=== PATIENT | female | born 1950 | race Caucasian/White ===

== ENCOUNTER 2016-10-21 08:31 | Inpatient (IN) | payer MEDICARE, OTHER ==
[2016-10-21 09:04] LABS: BASOPHIL 0.1 % (0-2); EOSINOPHIL 0.6 % (0-7); HCT 33.5 % (37.0-47.0); HGB 10.7 g/dl (12.5-16.0); LYMPHOCYTE 9.7 % (15-48); MCH 30.7 pg (25.0-31.0); MCHC 31.9 g/dL (32.0-36.0); MONOCYTE 6.1 % (0-12); MPV 9.8 fL (6.0-9.5); NEUTROPHIL 83.5 % (41-80); PLT 295 K/uL (150-400); RBC 3.49 M/uL (4.20-5.40); RDW 17.2 % (11.5-14.0)
[2016-10-21 09:05] LABS: INR 4.44 (0.9-1.2); PROTHROMBIN TIME 41.4 SECONDS (11.7-14.0); WBC 19.2 K/uL (4.0-10.5)
[2016-10-21 09:11] LABS: ALBUMIN 4.2 g/dL (3.4-4.8); BILIRUBIN - TOTAL 0.5 mg/dL (0.1-1.0); CREATININE 1.7 mg/dL (0.5-1.0); GLOBULIN (CALCULATION) 3.2 g/dL (2.2-4.2); POTASSIUM 4.4 mmol/L (3.5-5.1); TOTAL PROTEIN 7.4 g/dL (6.4-8.3)
[2016-10-21 09:12] LABS: TROPONIN T < 0.010 ng/mL
[2016-10-21 09:30] LABS: LACTIC ACID 2.3 mmol/L (0.5-2.2); PRO-BNP 4902 pg/mL (0-125)
[2016-10-22 03:57] LABS: BASOPHIL 0 % (0-2); EOSINOPHIL 0 % (0-7); HCT 30.8 % (37.0-47.0); LYMPHOCYTE 3.8 % (15-48); MCH 30.9 pg (25.0-31.0); MCHC 32.5 g/dL (32.0-36.0); MCV 95.1 fL (78.0-100.0); MPV 9.8 fL (6.0-9.5); NEUTROPHIL 94.2 % (41-80); PLT 239 K/uL (150-400); RBC 3.24 M/uL (4.20-5.40); RDW 17.1 % (11.5-14.0); WBC 14.7 K/uL (4.0-10.5)
[2016-10-22 04:08] LABS: INR 4.73 (0.9-1.2); PROTHROMBIN TIME 43.5 SECONDS (11.7-14.0)
[2016-10-22 04:38] LABS: CREATININE 1.9 mg/dL (0.5-1.0)
--- NOTE | 2016-10-22 08:18 | NUR ---
PARRA CATH REMOVED PER MD ORDER, OR TOLERATED WELL
--- NOTE | 2016-10-22 08:59 | NUR ---
PT AMBULATED AROUND THE HALLWAYS IN TCU/ICU O2 SAT ON ROOM AIR MAINTAINED AT 94%, TOLERATED WELL, NO DISTRESS, ALERT AND ORIENETD, PT STATED THAT SHE FEELS READY TO GO HOME. aMBULATED AROUND HALLWAYS x 2
[2016-10-23] MEDS ORDERED: CEFTIN250 MG PO (08:28)
[2016-10-23] MEDS ORDERED: AZITHROMYCIN250 MG PO (08:29)
[2016-10-23] MEDS ORDERED: LACTINEX1 EACH PO (08:29)
[2016-10-23] MEDS ORDERED: PREDNISONE 10MG10 MG PO (08:30)
[2016-10-23] MEDS ORDERED: ASPIRIN CHEWABL81 MG PO (08:30)
[2016-10-23] MEDS ORDERED: NORVASC5 MG PO (08:30)
[2016-10-23] MEDS ORDERED: ATORVASTATIN CA40 MG PO (08:31)
[2016-10-23] MEDS ORDERED: SYNTHROID150 MCG PO (08:31)
[2016-10-23] MEDS ORDERED: PHENERGAN25 M1 PO (08:32)
[2016-10-23] MEDS ORDERED: HOLD WARFARIN (08:32)
[2016-10-23] MEDS ORDERED: VENTOLIN (2.5 MG/3 M NEB (08:33)
[2016-10-23] MEDS ORDERED: SYMBICORT 16010.2 GM INH (08:33)
[2017-03-05] MEDS ORDERED: REQUIP1 MG PO (08:31)
[2017-03-05] MEDS ORDERED: KLONOPIN0.5 MG PO (08:32)
[2017-03-05] MEDS ORDERED: COUMADIN2 MG PO (10:11)
[2017-03-05] MEDS ORDERED: VISTARIL25 MG PO (10:13)
[2017-03-05] MEDS ORDERED: BEVESPI AEROS10.7 GM INH (10:13)
[2017-04-06] MEDS ORDERED: LOPRESSOR100 MG PO (08:31)
[2017-04-06] MEDS ORDERED: ZANTAC150 MG PO (08:31)
[2017-04-06] MEDS ORDERED: VENLAFAXINE HC150 MG PO (08:32)
[2017-04-06] MEDS ORDERED: AMIODARONE HCL200 MG PO (10:12)
[2017-04-06] MEDS ORDERED: ATIVAN0.5 MG PO (12:35)
[2017-04-06] MEDS ORDERED: BUMETANIDE2 MG PO (12:36)
[2017-04-06] MEDS ORDERED: CYMBALTA 30MG C30 MG PO (12:36)
[2017-04-06] MEDS ORDERED: LASIX40 MG PO (12:36)
[2017-04-27] MEDS ORDERED: LASIX40 MG PO (16:23)
[2017-05-01] MEDS ORDERED: COUMADIN2 MG PO (10:08)
[2017-05-01] MEDS ORDERED: LIPITOR40 MG PO (16:24)
[2017-05-01] MEDS ORDERED: LEVAQUIN750 MG PO (16:25)
[2017-05-01] MEDS ORDERED: PREDNISONE 10MG10 MG PO (16:25)
== END 2016-10-22 13:10 | disposition home or self-care (01) | DRG 871 ==
LOC: FER 08:31 → FTCU 11:40
PROVIDERS: Emergency Medicine; Internal Medicine; ADMIT Internal Medicine
DX: A41.9 Sepsis, unspecified organism (principal); J18.9 Pneumonia, unspecified organism; J96.01 Acute respiratory failure with hypoxia; J44.0 Chronic obstructive pulmonary disease with (acute) lower respiratory infection; J44.1 Chronic obstructive pulmonary disease with (acute) exacerbation; I48.0 Paroxysmal atrial fibrillation; D64.9 Anemia, unspecified; I12.9 Hypertensive chronic kidney disease with stage 1 through stage 4 chronic kidney disease, or unspecified chronic kidney disease; N18.9 Chronic kidney disease, unspecified; E03.9 Hypothyroidism, unspecified; G47.33 Obstructive sleep apnea (adult) (pediatric); I25.10 Atherosclerotic heart disease of native coronary artery without angina pectoris; E78.5 Hyperlipidemia, unspecified; F17.210 Nicotine dependence, cigarettes, uncomplicated; R79.1 Abnormal coagulation profile; Z95.1 Presence of aortocoronary bypass graft; Z82.49 Family history of ischemic heart disease and other diseases of the circulatory system; Z80.6 Family history of leukemia; Z79.82 Long term (current) use of aspirin; Z79.01 Long term (current) use of anticoagulants; Z79.899 Other long term (current) drug therapy
CPT/HCPCS: 36415; 36600; 71010; 80048; 80053; 82803; 83605; 83880; 84484; 85025; 85610; 86850; 86900; 86901; 87040; 93005; 94640; J0456; J1940; J2060; J2930

== ENCOUNTER 2016-11-16 06:11 | Emergency (ER) | payer MEDICARE, OTHER ==
[~2016-11-16 06:11] MED LIST: ASPIRIN CHEWABL81 MG PO; ATORVASTATIN CA40 MG PO; AZITHROMYCIN250 MG PO; CEFTIN250 MG PO; HOLD WARFARIN; LACTINEX1 EACH PO; NORVASC5 MG PO; PHENERGAN25 M1 PO; PREDNISONE 10MG10 MG PO; SYMBICORT 16010.2 GM INH; SYNTHROID150 MCG PO; VENTOLIN (2.5 MG/3 M NEB
[2017-03-05] MEDS ORDERED: REQUIP1 MG PO (08:31)
[2017-03-05] MEDS ORDERED: KLONOPIN0.5 MG PO (08:32)
[2017-03-05] MEDS ORDERED: COUMADIN2 MG PO (10:11)
[2017-03-05] MEDS ORDERED: BEVESPI AEROS10.7 GM INH (10:13)
[2017-03-05] MEDS ORDERED: VISTARIL25 MG PO (10:13)
[2017-04-06] MEDS ORDERED: LOPRESSOR100 MG PO (08:31)
[2017-04-06] MEDS ORDERED: ZANTAC150 MG PO (08:31)
[2017-04-06] MEDS ORDERED: VENLAFAXINE HC150 MG PO (08:32)
[2017-04-06] MEDS ORDERED: AMIODARONE HCL200 MG PO (10:12)
[2017-04-06] MEDS ORDERED: ATIVAN0.5 MG PO (12:35)
[2017-04-06] MEDS ORDERED: CYMBALTA 30MG C30 MG PO (12:36)
[2017-04-06] MEDS ORDERED: LASIX40 MG PO (12:36)
[2017-04-06] MEDS ORDERED: BUMETANIDE2 MG PO (12:36)
[2017-04-27] MEDS ORDERED: LASIX40 MG PO (16:23)
[2017-05-01] MEDS ORDERED: COUMADIN2 MG PO (10:08)
[2017-05-01] MEDS ORDERED: LIPITOR40 MG PO (16:24)
[2017-05-01] MEDS ORDERED: LEVAQUIN750 MG PO (16:25)
[2017-05-01] MEDS ORDERED: PREDNISONE 10MG10 MG PO (16:25)
== END 2016-11-16 13:44 | disposition other institution (70) ==
LOC: FER 06:11
DX: A41.9 Sepsis, unspecified organism (principal); R65.20 Severe sepsis without septic shock; J96.00 Acute respiratory failure, unspecified whether with hypoxia or hypercapnia; J44.9 Chronic obstructive pulmonary disease, unspecified; I25.10 Atherosclerotic heart disease of native coronary artery without angina pectoris; Z95.1 Presence of aortocoronary bypass graft; Z87.891 Personal history of nicotine dependence; Z79.01 Long term (current) use of anticoagulants; Z79.899 Other long term (current) drug therapy; Z98.84 Bariatric surgery status
CPT/HCPCS: 36415; 36600; 71010; 80053; 81001; 82803; 83605; 83880; 84484; 85025; 85379; 85610; 85730; 87040; 87088; 87804; 87899; 93005; 94640; 94660; 94760; 96372; J2543

== ENCOUNTER 2017-01-06 17:45 | Emergency (ER) | payer MEDICARE, OTHER ==
[2017-01-06 18:23] LABS: BASOPHIL 0.2 % (0-2); EOSINOPHIL 0 % (0-7); HCT 31.2 % (37.0-47.0); HGB 10.1 g/dl (12.5-16.0); LYMPHOCYTE 5.1 % (15-48); MCH 28.1 pg (25.0-31.0); MCHC 32.4 g/dL (32.0-36.0); MCV 86.9 fL (78.0-100.0); MONOCYTE 6.8 % (0-12); MPV 9.3 fL (6.0-9.5); NEUTROPHIL 87.9 % (41-80); PLT 277 K/uL (150-400); RBC 3.59 M/uL (4.20-5.40); RDW 15.8 % (11.5-14.0)
[2017-01-06 18:24] LABS: WBC 13.1 K/uL (4.0-10.5)
[2017-01-06 18:28] LABS: INR 3.46 (0.9-1.2); PTT 37.7 SECONDS (23.2-31.4)
[2017-01-06 18:36] LABS: ALBUMIN 4.3 g/dL (3.4-4.8); BILIRUBIN - TOTAL 0.2 mg/dL (0.1-1.0); CREATININE 1.9 mg/dL (0.5-1.0); GLOBULIN (CALCULATION) 3.1 g/dL (2.2-4.2); TOTAL PROTEIN 7.4 g/dL (6.4-8.3)
[2017-01-06 18:37] LABS: TROPONIN T < 0.010 ng/mL
[2017-01-06 18:38] LABS: PRO-BNP 4152 pg/mL (0-125)
[2017-03-05] MEDS ORDERED: REQUIP1 MG PO (08:31)
[2017-03-05] MEDS ORDERED: KLONOPIN0.5 MG PO (08:32)
[2017-03-05] MEDS ORDERED: COUMADIN2 MG PO (10:11)
[2017-03-05] MEDS ORDERED: VISTARIL25 MG PO (10:13)
[2017-03-05] MEDS ORDERED: BEVESPI AEROS10.7 GM INH (10:13)
[2017-04-06] MEDS ORDERED: ZANTAC150 MG PO (08:31)
[2017-04-06] MEDS ORDERED: LOPRESSOR100 MG PO (08:31)
[2017-04-06] MEDS ORDERED: VENLAFAXINE HC150 MG PO (08:32)
[2017-04-06] MEDS ORDERED: AMIODARONE HCL200 MG PO (10:12)
[2017-04-06] MEDS ORDERED: ATIVAN0.5 MG PO (12:35)
[2017-04-06] MEDS ORDERED: CYMBALTA 30MG C30 MG PO (12:36)
[2017-04-06] MEDS ORDERED: LASIX40 MG PO (12:36)
[2017-04-06] MEDS ORDERED: BUMETANIDE2 MG PO (12:36)
[2017-04-27] MEDS ORDERED: LASIX40 MG PO (16:23)
[2017-05-01] MEDS ORDERED: COUMADIN2 MG PO (10:08)
[2017-05-01] MEDS ORDERED: LIPITOR40 MG PO (16:24)
[2017-05-01] MEDS ORDERED: LEVAQUIN750 MG PO (16:25)
[2017-05-01] MEDS ORDERED: PREDNISONE 10MG10 MG PO (16:25)
== END 2017-01-06 19:56 | disposition home or self-care (01) ==
LOC: FER 17:45
PROVIDERS: Emergency Medicine
DX: J44.1 Chronic obstructive pulmonary disease with (acute) exacerbation (principal); I48.91 Unspecified atrial fibrillation; R82.90 Unspecified abnormal findings in urine; I10 Essential (primary) hypertension; E78.5 Hyperlipidemia, unspecified; D64.9 Anemia, unspecified; G47.33 Obstructive sleep apnea (adult) (pediatric); F17.210 Nicotine dependence, cigarettes, uncomplicated; Z79.01 Long term (current) use of anticoagulants; Z98.84 Bariatric surgery status; Z95.1 Presence of aortocoronary bypass graft
CPT/HCPCS: 36415; 36600; 71010; 80053; 82803; 83605; 83880; 84484; 85025; 85610; 85730; 87040; 93005; 94640; J1940; J2930

== ENCOUNTER 2017-01-12 18:01 | Inpatient (IN) | payer MEDICARE, OTHER ==
[~2017-01-12] VITALS: Ht 165.1 cm; Wt 92.1 kg
[2017-01-12 18:42] LABS: INR 4.32 (0.9-1.2); PROTHROMBIN TIME 40.5 SECONDS (11.7-14.0)
[2017-01-12 18:44] LABS: TROPONIN T < 0.010 ng/mL
[2017-01-12 18:45] LABS: PRO-BNP 3415 pg/mL (0-125)
[2017-01-12 18:46] LABS: ALBUMIN 4.1 g/dL (3.4-4.8); BILIRUBIN - TOTAL 0.5 mg/dL (0.1-1.0); CREATININE 1.7 mg/dL (0.5-1.0); GLOBULIN (CALCULATION) 3.3 g/dL (2.2-4.2); POTASSIUM 4.4 mmol/L (3.5-5.1); TOTAL PROTEIN 7.4 g/dL (6.4-8.3)
[2017-01-12 18:54] LABS: BASOPHIL 0.1 % (0-2); EOSINOPHIL 2.3 % (0-7); HCT 35.6 % (37.0-47.0); HGB 11.6 g/dl (12.5-16.0); LYMPHOCYTE 13.4 % (15-48); MCH 27.8 pg (25.0-31.0); MCHC 32.6 g/dL (32.0-36.0); MCV 85.4 fL (78.0-100.0); MONOCYTE 10.9 % (0-12); NEUTROPHIL 73.3 % (41-80); PLT 414 K/uL (150-400); RBC 4.17 M/uL (4.20-5.40); RDW 16.2 % (11.5-14.0)
[2017-01-12 18:56] LABS: WBC 16.7 K/uL (4.0-10.5)
[2017-01-12 21:14] LABS: LACTIC ACID 2.3 mmol/L (0.5-2.2)
[2017-01-12 21:16] LABS: MAGNESIUM 1.89 mg/dL (1.40-2.10); PHOSPHORUS 2.5 mg/dL (2.7-4.5)
[2017-01-12 21:16] LABS: BILIRUBIN NEGATIVE (NEGATIVE); BLOOD NEGATIVE Ery/uL (NEGATIVE); CLARITY CLEAR (CLEAR); COLOR YELLOW (YELLOW); GLUCOSE (U) NORMAL (NORMAL); KETONE (U) NEGATIVE (NEGATIVE); LEUKOCYTES NEGATIVE Leu/uL (NEGATIVE); NITRITE NEGATIVE (NEGATIVE); PROTEIN TRACE (LOW) mg/dL (NEGATIVE); SPECIFIC GRAVITY 1.015 (1.001-1.030); UROBILINOGEN 0.2 mg/dL (0.2-1.0); pH 5.5 (5.0-9.0)
[2017-01-12 21:26] LABS: FT4 (FREE T4) 2.49 ng/dL (0.93-1.70); TSH (THYROID STIM HORMONE) 0.067 uIU/mL (0.270-4.200)
[2017-01-13 00:55] LABS: CKMB 2.29 ng/mL (0.97-4.94); TROPONIN T < 0.010 ng/mL
[2017-01-13 07:01] LABS: BASOPHIL 0.1 % (0-2); EOSINOPHIL 0 % (0-7); HCT 30.4 % (37.0-47.0); HGB 9.8 g/dl (12.5-16.0); LYMPHOCYTE 6.2 % (15-48); MCH 27.5 pg (25.0-31.0); MCHC 32.2 g/dL (32.0-36.0); MCV 85.4 fL (78.0-100.0); MPV 9.2 fL (6.0-9.5); PLT 307 K/uL (150-400); RBC 3.56 M/uL (4.20-5.40); RDW 15.7 % (11.5-14.0); WBC 12.1 K/uL (4.0-10.5)
[2017-01-13 07:16] LABS: CKMB 2.09 ng/mL (0.97-4.94); NEUTROPHIL 91.7 % (41-80); TROPONIN T < 0.010 ng/mL
[2017-01-13 07:24] LABS: INR 3.5 (0.9-1.2); PROTHROMBIN TIME 34.3 SECONDS (11.7-14.0)
[2017-01-13 07:40] LABS: POTASSIUM 5.5 mmol/L (3.5-5.1)
[2017-01-14 04:41] LABS: INR 2.64 (0.9-1.2); PROTHROMBIN TIME 27.5 SECONDS (11.7-14.0)
[2017-01-14 04:50] LABS: POTASSIUM 4.7 mmol/L (3.5-5.1)
[2017-01-15 04:42] LABS: INR 2.21 (0.9-1.2); PROTHROMBIN TIME 23.9 SECONDS (11.7-14.0)
[2017-01-15 09:22] LABS: BASOPHIL 0.1 % (0-2); EOSINOPHIL 0 % (0-7); HCT 30.1 % (37.0-47.0); HGB 9.5 g/dl (12.5-16.0); LYMPHOCYTE 2.4 % (15-48); MCH 27.6 pg (25.0-31.0); MCHC 31.6 g/dL (32.0-36.0); MCV 87.5 fL (78.0-100.0); MONOCYTE 5.5 % (0-12); MPV 9.9 fL (6.0-9.5); PLT 309 K/uL (150-400); RBC 3.44 M/uL (4.20-5.40); RDW 16.4 % (11.5-14.0)
[2017-01-15 09:23] LABS: WBC 27.8 K/uL (4.0-10.5)
[2017-01-15 09:35] LABS: CREATININE 2.3 mg/dL (0.5-1.0); POTASSIUM 4.8 mmol/L (3.5-5.1)
[2017-01-16 05:44] LABS: INR 2.59 (0.9-1.2); PROTHROMBIN TIME 27.1 SECONDS (11.7-14.0)
[2017-01-16 16:31] LABS: IRON 24 ug/dL (44-196); IRON % SATURATION 8 %SAT (20-50); TIBC (TOTAL IRON + UIBC) 319 U/L (228-428); UIBC 295 ug/dL (112-346)
[2017-01-17 04:36] LABS: BASOPHIL 0 % (0-2); EOSINOPHIL 0 % (0-7); HCT 30.7 % (37.0-47.0); HGB 9.9 g/dl (12.5-16.0); LYMPHOCYTE 3.5 % (15-48); MCH 27.4 pg (25.0-31.0); MCHC 32.2 g/dL (32.0-36.0); MONOCYTE 7.2 % (0-12); MPV 9.7 fL (6.0-9.5); NEUTROPHIL 89.3 % (41-80); PLT 274 K/uL (150-400); RBC 3.61 M/uL (4.20-5.40); RDW 16.1 % (11.5-14.0)
[2017-01-17 04:40] LABS: INR 2.56 (0.9-1.2); PROTHROMBIN TIME 26.8 SECONDS (11.7-14.0)
[2017-01-17 04:44] LABS: WBC 25.7 K/uL (4.0-10.5)
[2017-01-17 04:57] LABS: CREATININE 1.8 mg/dL (0.5-1.0); MAGNESIUM 2.17 mg/dL (1.40-2.10); POTASSIUM 4.8 mmol/L (3.5-5.1)
[2017-01-17] MEDS ORDERED: CEFDINIR300 MG PO (10:12)
[2017-01-17] MEDS ORDERED: MUCINEX 600MG600 MG PO (10:13)
--- NOTE | 2017-01-17 11:44 | NUR ---
PT TAKEN FROM TCU VIA WHEELCHAIR. VITALS STABLE. NO DISTRESS NOTED, IVS REMOVED
[2017-03-05] MEDS ORDERED: REQUIP1 MG PO (08:31)
[2017-03-05] MEDS ORDERED: KLONOPIN0.5 MG PO (08:32)
[2017-03-05] MEDS ORDERED: COUMADIN2 MG PO (10:11)
[2017-03-05] MEDS ORDERED: VISTARIL25 MG PO (10:13)
[2017-03-05] MEDS ORDERED: BEVESPI AEROS10.7 GM INH (10:13)
[2017-04-06] MEDS ORDERED: ZANTAC150 MG PO (08:31)
[2017-04-06] MEDS ORDERED: LOPRESSOR100 MG PO (08:31)
[2017-04-06] MEDS ORDERED: VENLAFAXINE HC150 MG PO (08:32)
[2017-04-06] MEDS ORDERED: AMIODARONE HCL200 MG PO (10:12)
[2017-04-06] MEDS ORDERED: ATIVAN0.5 MG PO (12:35)
[2017-04-06] MEDS ORDERED: CYMBALTA 30MG C30 MG PO (12:36)
[2017-04-06] MEDS ORDERED: BUMETANIDE2 MG PO (12:36)
[2017-04-06] MEDS ORDERED: LASIX40 MG PO (12:36)
[2017-04-27] MEDS ORDERED: LASIX40 MG PO (16:23)
[2017-05-01] MEDS ORDERED: COUMADIN2 MG PO (10:08)
[2017-05-01] MEDS ORDERED: LIPITOR40 MG PO (16:24)
[2017-05-01] MEDS ORDERED: PREDNISONE 10MG10 MG PO (16:25)
[2017-05-01] MEDS ORDERED: LEVAQUIN750 MG PO (16:25)
== END 2017-01-17 11:30 | disposition home or self-care (01) | DRG 191 ==
LOC: FER 18:01 → FTCU 21:55
PROVIDERS: Emergency Medicine; Internal Medicine; Internal Medicine Cardiovascular Disease; ADMIT Internal Medicine
DX: J44.1 Chronic obstructive pulmonary disease with (acute) exacerbation (principal); I48.92 Unspecified atrial flutter; N17.9 Acute kidney failure, unspecified; I48.0 Paroxysmal atrial fibrillation; N18.4 Chronic kidney disease, stage 4 (severe); J20.9 Acute bronchitis, unspecified; J44.0 Chronic obstructive pulmonary disease with (acute) lower respiratory infection; T45.515A Adverse effect of anticoagulants, initial encounter; I25.10 Atherosclerotic heart disease of native coronary artery without angina pectoris; F41.1 Generalized anxiety disorder; G47.33 Obstructive sleep apnea (adult) (pediatric); I12.9 Hypertensive chronic kidney disease with stage 1 through stage 4 chronic kidney disease, or unspecified chronic kidney disease; D50.9 Iron deficiency anemia, unspecified; Z79.82 Long term (current) use of aspirin; Z98.84 Bariatric surgery status; Z87.891 Personal history of nicotine dependence; Z79.01 Long term (current) use of anticoagulants; E78.5 Hyperlipidemia, unspecified; Z95.1 Presence of aortocoronary bypass graft; I25.2 Old myocardial infarction; F32.9 Major depressive disorder, single episode, unspecified; R73.9 Hyperglycemia, unspecified
CPT/HCPCS: 36415; 71010; 71020; 80048; 80053; 81001; 82550; 82553; 82607; 83036; 83540; 83550; 83605; 83735; 83880; 84100; 84132; 84439; 84443; 84484; 85025; 85610; 85730; 87040; 87070; 87077; 87088; 87186; 87205; 93005; 94640; 94664; 94667; 94668; 96374; 97163; 97165; 97530; G0378; J0282; J2270; J2405; J2930

== ENCOUNTER 2017-01-26 03:12 | Day surgery (SDCO) | payer MEDICARE, OTHER ==
[~2017-01-26] VITALS: Ht 165.1 cm; Wt 90.4 kg
[~2017-01-26 03:12] MED LIST changes: +CEFDINIR300 MG PO; +MUCINEX 600MG600 MG PO
[2017-01-26 03:46] LABS: BASOPHIL 0.3 % (0-2); EOSINOPHIL 1.8 % (0-7); HCT 30.2 % (37.0-47.0); HGB 9.6 g/dl (12.5-16.0); LYMPHOCYTE 8.8 % (15-48); MCH 27.4 pg (25.0-31.0); MCHC 31.8 g/dL (32.0-36.0); MONOCYTE 5.2 % (0-12); MPV 9.2 fL (6.0-9.5); NEUTROPHIL 83.9 % (41-80); PLT 350 K/uL (150-400); RBC 3.51 M/uL (4.20-5.40); RDW 16.9 % (11.5-14.0)
[2017-01-26 03:47] LABS: WBC 13.8 K/uL (4.0-10.5)
[2017-01-26 03:52] LABS: INR 1.59 (0.9-1.2); PROTHROMBIN TIME 18.4 SECONDS (11.7-14.0); PTT 36.7 SECONDS (23.2-31.4)
[2017-01-26 03:53] LABS: D-DIMER 2.53 ug/mLFEU (0.00-0.41)
[2017-01-26 04:16] LABS: CKMB 1.95 ng/mL (0.97-4.94); TROPONIN T < 0.010 ng/mL
[2017-01-26 04:17] LABS: ALBUMIN 3.2 g/dL (3.4-4.8); BILIRUBIN - TOTAL 0.2 mg/dL (0.1-1.0); CREATININE 1.8 mg/dL (0.5-1.0); LACTIC ACID 0.7 mmol/L (0.5-2.2); POTASSIUM 4.9 mmol/L (3.5-5.1); PRO-BNP 6393 pg/mL (0-125); TOTAL PROTEIN 7.2 g/dL (6.4-8.3)
[2017-01-26 04:35] LABS: BILIRUBIN NEGATIVE (NEGATIVE); BLOOD TRACE-LYSED Ery/uL (NEGATIVE); CLARITY CLEAR (CLEAR); GLUCOSE (U) NORMAL (NORMAL); KETONE (U) NEGATIVE (NEGATIVE); LEUKOCYTES NEGATIVE Leu/uL (NEGATIVE); NITRITE NEGATIVE (NEGATIVE); PROTEIN NEGATIVE (NEGATIVE); UROBILINOGEN 0.2 mg/dL (0.2-1.0); pH 5.5 (5.0-9.0)
[2017-01-26 04:37] LABS: COLOR STRAW (YELLOW)
[2017-01-26 04:51] LABS: SQUAMOUS EPITHELIAL CELLS RARE; URINARY RBC RARE
[2017-01-27 04:45] LABS: BASOPHIL 0 % (0-2); EOSINOPHIL 0 % (0-7); HCT 25.4 % (37.0-47.0); HGB 8.2 g/dl (12.5-16.0); LYMPHOCYTE 4.7 % (15-48); MCH 27.4 pg (25.0-31.0); MCHC 32.3 g/dL (32.0-36.0); MCV 84.9 fL (78.0-100.0); MONOCYTE 4.4 % (0-12); MPV 9.4 fL (6.0-9.5); NEUTROPHIL 90.9 % (41-80); PLT 333 K/uL (150-400); RBC 2.99 M/uL (4.20-5.40); RDW 16.3 % (11.5-14.0); WBC 17.7 K/uL (4.0-10.5)
[2017-01-27 04:46] LABS: INR 2.51 (0.9-1.2); PROTHROMBIN TIME 26.4 SECONDS (11.7-14.0)
[2017-01-27 04:56] LABS: CREATININE 1.9 mg/dL (0.5-1.0); MAGNESIUM 1.96 mg/dL (1.40-2.10); POTASSIUM 4.7 mmol/L (3.5-5.1)
[2017-01-27] MEDS ORDERED: REMERON15 MG PO (10:56)
[2017-01-27] MEDS ORDERED: CEFEPIME 22 GM/100 M IV (10:57)
--- NOTE | 2017-01-27 16:42 | NUR ---
1515 PT IN ICU NEEDING PICC LINE INSERTED FOR [facility]. PROCEDURE EXPLAINED TO PT ALONG WITH RISKS AND BENEFITS. CONSENT SIGNED. BASILIC VEIN VISUALIZED USING THE SITE [employer] 6 ULTRASOUND MACHINE.LEFT UPPER ARM SKIN AREA CLEANSED AND DRAPED IN STERILE FASHION. AREA THEN NUMBED WITH % LIDOCAINE. 21 GA NEEDLE INSERTED IN DODIE X1 STICK. GUIDED EASILY. #4 FR SINGLE LUMEN CATHETER TRIMMED AT 44 CM, BICEP 32 CM, INSERTION 0 CM. GOOD BLOOD RETURN NOTED. PICC DRESSING APPLIED, STAT CHEST XRAY OBTAINED. RADIOLOGIST CONFIRMED PLACEMENT IN THE PROXIMAL SVC. PATIENT TOLERATED IT WELL. REPORT GIVEN TO ADAM RIVERA R.N..
[2017-03-05] MEDS ORDERED: REQUIP1 MG PO (08:31)
[2017-03-05] MEDS ORDERED: KLONOPIN0.5 MG PO (08:32)
[2017-03-05] MEDS ORDERED: COUMADIN2 MG PO (10:11)
[2017-03-05] MEDS ORDERED: BEVESPI AEROS10.7 GM INH (10:13)
[2017-03-05] MEDS ORDERED: VISTARIL25 MG PO (10:13)
[2017-04-06] MEDS ORDERED: LOPRESSOR100 MG PO (08:31)
[2017-04-06] MEDS ORDERED: ZANTAC150 MG PO (08:31)
[2017-04-06] MEDS ORDERED: VENLAFAXINE HC150 MG PO (08:32)
[2017-04-06] MEDS ORDERED: AMIODARONE HCL200 MG PO (10:12)
[2017-04-06] MEDS ORDERED: ATIVAN0.5 MG PO (12:35)
[2017-04-06] MEDS ORDERED: CYMBALTA 30MG C30 MG PO (12:36)
[2017-04-06] MEDS ORDERED: BUMETANIDE2 MG PO (12:36)
[2017-04-06] MEDS ORDERED: LASIX40 MG PO (12:36)
[2017-04-27] MEDS ORDERED: LASIX40 MG PO (16:23)
[2017-05-01] MEDS ORDERED: COUMADIN2 MG PO (10:08)
[2017-05-01] MEDS ORDERED: LIPITOR40 MG PO (16:24)
[2017-05-01] MEDS ORDERED: PREDNISONE 10MG10 MG PO (16:25)
[2017-05-01] MEDS ORDERED: LEVAQUIN750 MG PO (16:25)
== END 2017-01-27 16:32 | disposition home health service (06) ==
LOC: FER 03:12 → FICU 07:15
PROVIDERS: Emergency Medicine Emergency Medical Services; ADMIT Internal Medicine Nephrology
DX: J15.1 Pneumonia due to Pseudomonas (principal); A41.52 Sepsis due to Pseudomonas; J96.01 Acute respiratory failure with hypoxia; J44.9 Chronic obstructive pulmonary disease, unspecified; I25.10 Atherosclerotic heart disease of native coronary artery without angina pectoris; G47.33 Obstructive sleep apnea (adult) (pediatric); N18.4 Chronic kidney disease, stage 4 (severe); F41.9 Anxiety disorder, unspecified; F17.210 Nicotine dependence, cigarettes, uncomplicated; Z99.89 Dependence on other enabling machines and devices; Z83.3 Family history of diabetes mellitus; Z82.49 Family history of ischemic heart disease and other diseases of the circulatory system; Z80.6 Family history of leukemia; Z79.82 Long term (current) use of aspirin; Z79.01 Long term (current) use of anticoagulants; Z79.899 Other long term (current) drug therapy
CPT/HCPCS: 36415; 36600; 71010; 71250; 80048; 80053; 81001; 82550; 82553; 82803; 83605; 83735; 83880; 84484; 85025; 85379; 85610; 85730; 87040; 87088; 93005; 94010; 94640; 94667; 94668; 96372; C1751; G0378; J0692; J1940; J2060; J2543; J2930